=== PATIENT | female | born 1985 | race Caucasian/White ===

== ENCOUNTER 2018-11-19 04:07 | Inpatient (IN) | payer OTHER ==
[~2018-11-19] VITALS: Ht 165.1 cm; Wt 3.2 kg
[2018-11-19] MEDS ORDERED: NIFEDIPINE ER30 M1 PO (15:16)
== END 2018-11-21 13:03 | DRG 788 ==
LOC: OB/GYN 04:07 → LDR 04:07 → O/R 08:55 → OB/GYN 09:29
PROVIDERS: ADMIT Specialist
PROC: 4A0HXFZ Measurement of Products of Conception, Cardiac Rhythm, External Approach (ICD-10-PCS; 2018-11-19)
PROC: 10D00Z1 Extraction of Products of Conception, Low, Open Approach (ICD-10-PCS; principal; 2018-11-19 08:15)
DX: O82 Encounter for cesarean delivery without indication (principal); Z3A.37 37 weeks gestation of pregnancy; Z37.0 Single live birth

== ENCOUNTER → 2020-01-26 | Outpatient (CLI) | payer OTHER ==
[~2020-01-26] MED LIST: NIFEDIPINE ER30 M1 PO
== END | disposition home or self-care (01) ==
LOC: OFIC 805 13:00
PROVIDERS: ATTEND Otolaryngology
DX: J32.0 Chronic maxillary sinusitis (principal); J32.2 Chronic ethmoidal sinusitis

== ENCOUNTER → 2020-02-23 | Outpatient (CLI) | payer OTHER | END | disposition home or self-care (01) | LOC: OFIC 805 14:15 | PROVIDERS: ATTEND Otolaryngology | DX: J32.0 Chronic maxillary sinusitis (principal); G50.1 Atypical facial pain; R09.81 Nasal congestion ==